=== PATIENT | female | born 1975 | race American Indian/Alaskan Native ===

== ENCOUNTER 2018-12-20 10:32 | Emergency (ER) | payer SELFPAY ==
[2018-12-20 11:21] VITALS: BP 130/85
--- NOTE | 2018-12-20 11:23 | Event Note ---
ED Screening Note Date of service: 12/20/18 Time: 11:18 ED Screening Note: Pt complains of lower abdominal pain x 1-2 months pain relieves with motrin denies urinary symptoms LMP 09/2018 Hx of fibroids denies vaginal bleeding/discharge This initial assessment/diagnostic orders/clinical plan/treatment(s) is/are subject to change based on patients health status, clinical progression and re- assessment by fellow clinical providers in the ED. Further treatment and workup at subsequent clinical providers discretion. Patient/guardian urged not to elope from the ED as their condition may be serious if not clinically assessed and managed. Initial orders include: US labs UA
[2018-12-20 11:53] LABS: Hematocrit 37.3 % (30.3-42.9); Hemoglobin 12.7 gm/dl (10.1-14.3); Mean Corpuscular HGB Conc 34 % (30-34); Mean Corpuscular Volume 89 fl (79-97); Platelet Count 279 K/mm3 (140-440); Red Blood Count 4.18 M/mm3 (3.65-5.03); Red Cell Distribution Width 13.7 % (13.2-15.2)
[2018-12-20 11:56] LABS: HCG Qualitative,Urine Positive (Negative)
[2018-12-20 12:03] LABS: Bilirubin,Urine NEG (Negative); Blood,Urine NEG (Negative); Color,Urine Yellow (Yellow); Mucus,Urine FEW /HPF; Protein,Urine <15 mg/dL mg/dL (Negative); Urobilinogen,Urine < 2.0 mg/dL (<2.0)
[2018-12-20 12:17] LABS: BUN/Creatinine Ratio 14; Blood Urea Nitrogen 7 mg/dL (7-17); Calcium 9.6 mg/dL (8.4-10.2); Hemolysis Index 27
--- NOTE | 2018-12-20 14:21 | Ultrasound Report ---
ULTRASOUND OB TRANSVAGINAL HISTORY: Pain TECHNIQUE: Transvaginal imaging. COMPARISON: None. FINDINGS: The uterus is mildly enlarged measuring 15.0 x 10.6 x 10.2 cm. 2 fibroids are identified in the lower uterine segment measuring up to 2.5 cm. An intrauterine is identified with heart rat e measuring 159 bpm. [place]-rump length measures 61.5 mm which correlates with a 12 week 4 day pregnan cy. The placenta appears to be forming anteriorly. Amniotic fluid volume is grossly normal. The ovaries are not visualized. No pelvic fluid collection. IMPRESSION: Viable, single intrauterine as described above. No acute abnormality is detected. Mild uterine fibroid disease. The ovaries are not visualized. Signer Name: Todd Barclay Jr, MD Signed: 12/20/2018 2:16 PM Workstation Name: [id number]
--- NOTE | 2018-12-20 15:03 | Emergency Department Report ---
ED General Adult HPI - General Chief complaint: Abdominal Pain Stated complaint: ABD PAIN Time Seen by Provider: 12/20/18 11:18 Source: patient Mode of arrival: Ambulatory Limitations: No Limitations - History of Present Illness Initial comments: 42yo BF states that she has lower abdominal pain, toothache, BRONWING and constipation x 1 month. She has taken Motrin and Tylenol with no relief. -: month(s) Location: head, mouth, abdomen Radiation: non-radiation Severity scale (0 -10): 6 Quality: aching Consistency: intermittent Improves with: none Worsens with: none Associated Symptoms: nausea/vomiting Treatments Prior to Arrival: none - Related Data Allergies Allergy/AdvReac Type Severity Reaction Status Date / Time No Known Allergies Allergy Unverified 12/20/18 10:33 ED Review of Systems ROS: Stated complaint: ABD PAIN Other details as noted in HPI Comment: All other systems reviewed and negative ENT: as per HPI Gastrointestinal: as per HPI Neurological: as per HPI ED Past Medical Hx - Past Medical History Previous Medical History?: Yes Additional medical history: fibroids - Surgical History Past Surgical History?: Yes Additional Surgical History: d&c - Social History Smoking Status: Never Smoker Substance Use Type: None ED Physical Exam - General Limitations: No Limitations General appearance: alert, in no apparent distress - Head Head exam: Present: atraumatic, normocephalic - Eye Eye exam: Present: normal appearance, PERRL, EOMI - ENT ENT exam: Present: normal exam, normal orophraynx - Neck Neck exam: Present: normal inspection, full ROM. Absent: tenderness - Respiratory Respiratory exam: Present: normal lung sounds bilaterally, respiratory distress. Absent: wheezes - Cardiovascular Cardiovascular Exam: Present: regular rate, normal rhythm, normal heart sounds. Absent: bradycardia - GI/Abdominal GI/Abdominal exam: Present: soft, tenderness (RLQ), normal bowel sounds. Absent: distended - Rectal Rectal exam: Present: deferred - Extremities Exam Extremities exam: Present: normal inspection, full ROM. Absent: tenderness - Back Exam Back exam: Present: normal inspection. Absent: full ROM, tenderness - Neurological Exam Neurological exam: Present: alert, altered, oriented X3 - Psychiatric Psychiatric exam: Present: normal affect, normal mood. Absent: depressed - Skin Skin exam: Present: warm, dry, intact ED Course Vital Signs 12/20/18 11:18 Temperature 98.4 F Pulse Rate 90 Respiratory 16 Rate Blood Pressure 130/85 O2 Sat by Pulse 100 Oximetry ED Medical Decision Making - Lab Data Result diagrams: 12/20/18 11:40 12/20/18 11:40 - Radiology Data [facility] [address] [place] [address] Ultrasound Report Signed Patient: KAITLIN RODRÍGUEZ MR#: [id number] : 1975 Acct:[id number] Age/Sex: 42 / F ADM Date: 12/20/18 Loc: ED Attending Dr: Ordering Physician: LYRIC JESSICA Date of Service: 12/20/18 Procedure(s): US OB transvaginal Accession Number(s): [id number] cc: LYRIC JESSICA ULTRASOUND OB TRANSVAGINAL HISTORY: Pain TECHNIQUE: Transvaginal imaging. COMPARISON: None. FINDINGS: The uterus is mildly enlarged measuring 15.0 x 10.6 x 10.2 cm. 2 fibroids are identified in the lower uterine segment measuring up to 2.5 cm. An intrauterine is identified with heart rate measuring 159 bpm. [place]-rump length measures 61.5 mm which correlates with a 12 week 4 day . The placenta appears to be forming anteriorly. Amniotic fluid volume is grossly normal. The ovaries are not visualized. No pelvic fluid collection. IMPRESSION: Viable, single intrauterine as described above. No acute abnormality is detected. Mild uterine fibroid disease. The ovaries are not visualized. Signer Name: Todd Barclay Jr, MD Signed: 12/20/2018 2:16 PM Workstation Name: [id number] Transcribed By: TTR Dictated By: TODD BARCLAY JR, MD Electronically Authenticated By: TODD BARCLAY JR, MD Signed Date/Time: 12/20/18 141 DD/ 141 TD/TT: - Medical Decision Making 42yo BF states that she has lower abdominal pain, toothache, BROWNING and constipation x 1 month. She has taken Motrin and Tylenol with no relief. Labs and imaging results revealed that pt is . Pt was informed that a Quant. HCG was ordered and recommended as well but the pt stated that she would like to leave and f/u with an OBGYN. There was a conversation between provider and pt discussing risk of ectopic . Pt signed AMA and departed. Critical care attestation.: If time is entered above; I have spent that time in minutes in the direct care of this critically ill patient, excluding procedure time. ED Disposition Clinical Impression: Positive test, Tooth pain Disposition: DC-07 LEFT AGAINST MED ADVICE Is pt being admited?: No Does the pt Need Aspirin: No Condition: Stable Instructions: Abdominal Pain (ED) Referrals: PRIMARY CARE, [Primary Care Provider] - 3-5 Days Forms: AMA Form Time of Disposition: 15:19
== END 2018-12-20 15:21 | disposition left against medical advice (07) ==
LOC: ED 10:32
DX: O26.891 Other specified pregnancy related conditions, first trimester (principal); R10.30 Lower abdominal pain, unspecified; K08.89 Other specified disorders of teeth and supporting structures; Z3A.12 12 weeks gestation of pregnancy
CPT/HCPCS: 36415; 76817; 80048; 81001; 81025; 84702; 85027